=== PATIENT | female | born 1950 | race Caucasian/White ===

== ENCOUNTER → 2016-07-22 | Outpatient (CLI) | payer MEDICARE, OTHER ==
[~2016-07-22] MED LIST: ASPIRIN EC81 MG PO; CALCIUM 600 +1 EA12 PO; GLUCOPHAGE500 MG PO; LEVOTHROID (S112 MCG PO; LIPITOR10 MG PO; OMEPRAZOLE20 MG PO; TOPROL XL 5050 MG PO; VITAMIN D1000 UNIT PO
== END | disposition disaster alternative care site (69) ==
LOC: GPOC 07-21 09:00 → GBCOE 09:41 → GPOC 10:00
PROC: 0HBT3ZX Excision of Right Breast, Percutaneous Approach, Diagnostic (ICD-10-PCS; principal; 2016-07-22)
DX: D24.1 Benign neoplasm of right breast (principal); R92.0 Mammographic microcalcification found on diagnostic imaging of breast
CPT/HCPCS: J7050